=== PATIENT | female | born 1960 | race Hispanic/Latino ===

== ENCOUNTER → 2018-07-31 | Outpatient (CLI) | payer OTHER | END | disposition home or self-care (01) | LOC: RAH 13:35 | PROVIDERS: ATTEND Neurological Surgery | DX: M51.04 Intervertebral disc disorders with myelopathy, thoracic region (principal); M48.04 Spinal stenosis, thoracic region | CPT/HCPCS: 72146 ==

== ENCOUNTER 2018-08-10 14:00 | Inpatient (IN) | payer OTHER ==
[~2018-08-10] VITALS: Ht 162.6 cm; Wt 79.2 kg
[2018-08-10 12:45] VITALS: BP 133/77
[2018-08-10 13:03] LABS: BASOPHILS % (AUTO) 0.7 % (0.0-5.0); EOSINOPHILS % (AUTO) 1.4 % (0.0-8.0); HEMATOCRIT 42.5 % (36-48); LYMPHOCYTES % (AUTO) 32.7 % (21.0-51.0); MEAN CORPUSCULAR HEMOGLOBIN 30.8 pg (27.0-33.0); MEAN CORPUSCULAR HGB CONC 34.5 g/dL (32.0-36.0); MEAN CORPUSCULAR VOLUME 89.2 fL (79-99); MONOCYTES % (AUTO) 7.9 % (3.0-13.0); NEUTROPHILS % (AUTO) 57.3 % (40.0-77.0); PLATELET COUNT (AUTO) 243 K/uL (130-400); RED BLOOD CELL COUNT(AUTO) 4.76 MIL/uL (4.00-5.50); RED CELL DISTRIBUTION WIDTH 12.6 % (11.0-15.5); WHITE BLOOD COUNT (AUTO) 8.7 K/uL (4.8-10.8)
[2018-08-10] MEDS ORDERED: CEFAZOLIN SODIUM 1 GM VIAL IVP SCH (15:00)
[2018-08-12] VITALS (22 sets, daily range): BP systolic 101–155; BP diastolic 49–82
[2018-08-12] MEDS ORDERED: BUPIVACAINE/EPI/PF 0.25% 50 ML VIAL ONE (06:30)
[2018-08-12] MEDS ORDERED: BACITRACIN 50,000 UNIT VIAL ONE (06:30)
[2018-08-12] MEDS ORDERED: THROMBIN-JMI 20000 UNIT KIT TP ONE (06:31)
[2018-08-12] MEDS ORDERED: LACTATED RINGERS 1000ML 1,000 ML IV ONE (07:46)
[2018-08-12] MEDS ORDERED: CEFAZOLIN SODIUM 1 GM VIAL ONE (07:47)
[2018-08-12] MEDS ORDERED: SUCCINYLCHOLINE 200MG/10ML SYR ONE (08:03)
[2018-08-12] MEDS ORDERED: LIDOCAINE PF 2% 5ML ABBOJECT ONE (08:04)
[2018-08-12] MEDS ORDERED: PROPOFOL 10 MG/ML 20ML VIAL IV ONE (08:04)
[2018-08-12] MEDS ORDERED: NEOSTIGMINE 5MG/5ML SYR IV ONE (08:04)
[2018-08-12] MEDS ORDERED: MIDAZOLAM HCL 1 MG/ML 2ML VIAL ONE (08:04)
[2018-08-12] MEDS ORDERED: GLYCOPYRROLATE 1 MG/5 ML SYRINGE ONE (08:04)
[2018-08-12] MEDS ORDERED: DEXAMETHASONE SOD PHOSPHATE 10MG/ML 1ML VIAL ONE (08:04)
[2018-08-12] MEDS ORDERED: ROCURONIUM 10MG/1ML SYR 10 MG/ML ML ONE (08:05)
[2018-08-12] MEDS ORDERED: ONDANSETRON HCL 4 MG/2 ML VIAL ONE (08:05)
[2018-08-12] MEDS ORDERED: FENTANYL CITRATE PF 50 MCG/1 ML 2ML VIAL ONE ×3 (08:05→11:33)
[2018-08-12] MEDS ORDERED: EPHEDRINE SULFATE 50 MG/ML AMPULE ONE (08:09)
[2018-08-12] MEDS ORDERED: METOCLOPRAMIDE 10 MG/2 ML VIAL ONE (08:09)
[2018-08-12] MEDS ORDERED: LIDOCAINE HCL 4% LTA SOL 4 ML VIAL ONE (08:09)
[2018-08-12] MEDS ORDERED: MANNITOL 20% 500ML BAG 500 ML IV ONE (08:59)
[2018-08-12] MEDS ORDERED: ESMOLOL HCL 10 MG/ML 10 ML VIAL ONE (09:32)
[2018-08-12] MEDS ORDERED: CEFAZOLIN SODIUM 1 GM VIAL IVP SCH (12:15)
[2018-08-12] MEDS ORDERED: MORPHINE SULFATE 2 MG/ML 1ML SYG IVP PRN (12:15)
[2018-08-12] MEDS ORDERED: PROMETHAZINE HCL 25 MG/ML 1ML AMPULE IM PRN (12:15)
[2018-08-12] MEDS ORDERED: SODIUM CHLORIDE 0.9% 10 ML VIAL IVP PRN (12:15)
[2018-08-12] MEDS: LACTATED RINGERS 1000ML 1,000 ML IV SCH (13:26)
[2018-08-12] MEDS: DEXAMETHASONE SOD PHOSPHATE 4 MG/ML 1ML VIAL IVP SCH ×3 (13:35→23:26)
[2018-08-12] MEDS: HYDROCODONE/ACETAMINOPHEN 5/325 MG TAB PO PRN (19:59)
--- NOTE | 2018-08-12 21:30 | NUR ---
PT AMBULATING. PT AMBULATING HALLWAY WITH ASSISTANCE OF WALKER AT THIS TIME, NO C/O DIZZINESS AT THIS TIME. STEADY GAIT NOTED.
--- NOTE | 2018-08-12 22:15 | NUR ---
PT AMBULATING. PT AMBULATING HALLWAY WITH ASSISTANCE OF WALKER AT THIS TIME, NO C/O DIZZINESS OR PAIN AT THIS TIME. STEADY GAIT OBSERVED.
[2018-08-13] MEDS: LACTATED RINGERS 1000ML 1,000 ML IV SCH (00:41)
[2018-08-13 03:10] VITALS: BP 107/58
--- NOTE | 2018-08-13 05:15 | NUR ---
MULLER CATHETER. PER MD ORDER PT MULLER CATHETER DISCONTINUED AT 0515. CATHETER TIP OBSERVED TO BE INTACT, NO C/O DISTRESS OF DISCOMFORT AT THIS TIME. PT DUE TO VOID.
[2018-08-13] MEDS: DEXAMETHASONE SOD PHOSPHATE 4 MG/ML 1ML VIAL IVP SCH (06:05)
--- NOTE | 2018-08-13 06:49 | NUR ---
AMBULATING PT AMBULATED AROUND THE UNIT WITH ASSISTANCE OF WALKER. NO C/O PAIN OR DIZZINESS AT THIS TIME. AMBULATING WITH STEADY GAIT. ASSISTED INTO THE BATHROOM, VOIDED CLEAR YELLOW URINE POST MULLER CATHETER REMOVAL. PT SITTING IN CHAIR AT THE SIDE OF THE BED AWAITING BREAKFAST.
[2018-08-13 07:56] VITALS: BP 97/55
[2018-08-13] MEDS: HYDROCODONE/ACETAMINOPHEN 5/325 MG TAB PO PRN (10:53)
--- NOTE | 2018-08-13 12:28 | NUR ---
DC DC INSTRUCTION GIVEN TO PATIENT AND DAUGHTER USING TEACHBACK TECHNIQUE, ABLE TO RETURN INTRUCTION, DSG CHANGED ORDERED, INCISION IS WELL APPROXIMATED, CLEAN AND DRY. NO S/S OF INFECTION. IV CATHETER REMOVED INTACT, DC HOME ACCOMPANIED BY DAUGHTER
== END 2018-08-13 11:39 | disposition home or self-care (01) | DRG 310 ==
LOC: EDSTATUS 14:00 → DAHIP 08-12 05:42 → 4BH 08-12 13:18
PROVIDERS: ADMIT Neurological Surgery; ATTEND Neurological Surgery
PROC: 4A11X4G Monitoring of Peripheral Nervous Electrical Activity, Intraoperative, External Approach (ICD-10-PCS; 2018-08-12)
PROC: 0RT90ZZ Resection of Thoracic Vertebral Disc, Open Approach (ICD-10-PCS; principal; 2018-08-12 08:54)
PROC: 01N80ZZ Release Thoracic Nerve, Open Approach (ICD-10-PCS; 2018-08-12 08:54)
PROC: BR171ZZ Fluoroscopy of Thoracic Spine using Low Osmolar Contrast (ICD-10-PCS; 2018-08-12 08:54)
DX: M51.04 Intervertebral disc disorders with myelopathy, thoracic region (principal); E66.9 Obesity, unspecified; K21.9 Gastro-esophageal reflux disease without esophagitis; M21.371 Foot drop, right foot; Z68.30 Body mass index [BMI] 30.0-30.9, adult
CPT/HCPCS: 36415; 72020; 80051; 85025; A4218; A4344; G0378; J0330; J0690; J1100; J2001; J2250; J2405; J2550; J2704; J2710; J2765; J3010; J3490; J7120